=== PATIENT | female | born 1995 | race African-American/Black ===

== ENCOUNTER 2019-02-10 23:09 | Emergency (ER) | payer MEDICAID ==
[~2019-02-10] VITALS: Ht 165.1 cm; Wt 50.0 kg
[2019-02-10 23:26] VITALS: BP 111/74
[2019-02-10 23:57] LABS: APPEARANCE,URINE CLOUDY (CLEAR); BILIRUBIN,URINE NEGATIVE (NEGATIVE); GLUCOSE, URINE (UA) NEGATIVE (NEGATIVE); KETONES,URINE NEGATIVE (NEGATIVE); LEUKOCYTE ESTERASE ,URINE MODERATE (NEGATIVE); NITRATE,URINE NEGATIVE (NEGATIVE); OCCULT BLOOD,URINE MODERATE (NEGATIVE); PH,URINE 6.5 (5.0-8.0); PROTEIN,URINE TRACE (NEGATIVE); UROBILINOGEN,URINE 0.2 mg/dL (<=1.0)
[2019-02-11 00:12] LABS: WBC,URINE 26-50 /HPF (0-5)
[2019-02-11 00:13] LABS: BACTERIA,URINE Many /HPF (None Seen); SQUAMOUS EPITHELIAL CELL,UR Many /LPF (None Seen)
[2019-02-11] MEDS ORDERED: CefTRIAXone SODIUM 1 GM/VIAL IM ONE (01:00)
[2019-02-11] MEDS ORDERED: AZITHROMYCIN 250 MG TABLET PO ONE (01:00)
[2019-02-11] MEDS ORDERED: IBUPROFEN 600 MG TABLET PO ONE (01:00)
== END 2019-02-11 01:47 | disposition home or self-care (01) ==
LOC: EMS 23:18
DX: N76.0 Acute vaginitis (principal); N39.0 Urinary tract infection, site not specified; F17.210 Nicotine dependence, cigarettes, uncomplicated
CPT/HCPCS: 81001; 81025; 87077; 87086; 87186; 96372; 99283; 99406; J0696